=== PATIENT | female | born 1995 | race American Indian/Alaskan Native ===

== ENCOUNTER 2016-10-02 16:10 | Inpatient (IN) | payer MEDICAID ==
[2016-10-02] MEDS ORDERED: ePHEDrine SULFATE IV PRN ×2 (16:19→18:55)
[2016-10-02] MEDS ORDERED: XYLOCAINE 2% INFILTRATI ONE (16:19)
[2016-10-02] MEDS ORDERED: BRETHINE IVP PRN (16:19)
[2016-10-02] MEDS ORDERED: SUBLIMAZE IV PRN (16:19)
[2016-10-02] MEDS ORDERED: MINERAL OIL PO PRN (16:19)
[2016-10-02] MEDS ORDERED: BRETHINE SUB-Q PRN (16:19)
--- NOTE | 2016-10-02 16:27 | History and Physical Report ---
History of Present Illness Date of examination: 10/02/16 Date of admission: 10/02/16 16:10 Chief complaint: Contractions on and off since Wednesday, also C/O leaking fluid, nitrazine negative in office History of present illness: 21 YO now 37 weeks with limited care at [facility]. Upon exam today she was 5-6cm/80/-1. FHR was 160-170 in the office. She reports that she has had fever. Past History Past Medical History: no pertinent history Past Surgical History: no surgical history [employer] History: abnormal PAP smear Family/Genetic History: none Social history: no significant social history - Obstetrical History Expected Date of Delivery: 10/23/16 Actual Gestation: 37 Week(s) 0 Day(s) : 3 Para: 2 Hx # Term Pregnancies: 2 Number of Pregnancies: 0 Spontaneous Abortions: 0 Induced : 0 Number of Living Children: 2 Medications and Allergies Allergies Allergy/AdvReac Type Severity Reaction Status Date / Time No Known Allergies Allergy Unverified 10/02/16 17:20 Active Meds: Active Medications Ephedrine Sulfate (Ephedrine Sulfate) 10 mg IV Q2M PRN PRN Reason: Hypotension Stop: 10/02/16 16:24 Fentanyl (Sublimaze) 100 mcg IV Q2H PRN PRN Reason: Labor Pain Lactated Ringer's (Lactated Ringers) 1,000 mls @ 125 mls/hr IV DIRECT IDRIS Oxytocin/Sodium Chloride (Pitocin/Ns 20 Unit/1000ml Drip) 20 units in 1,000 mls @ 125 mls/hr IV DIRECT IDRIS Oxytocin/Sodium Chloride (Pitocin/Ns 30 Unit/500ml) 30 units in 500 mls @ 4 mls /hr IV TITR IDRIS PRN Reason: Protocol Lidocaine (Xylocaine 2%) 20 ml INFILTRATI ONCE ONE Stop: 10/02/16 16:20 Mineral Oil (Mineral Oil) 30 ml PO QHS PRN PRN Reason: Constipation Terbutaline Sulfate (Brethine) 0.25 mg SUB-Q ONCE PRN PRN Reason: Hyperstimulation/Hypertonicity Stop: 10/02/16 16:20 Terbutaline Sulfate (Brethine) 0.25 mg IVP ONCE PRN PRN Reason: Hyperstimulation/Hypertonicity Stop: 10/02/16 16:20 Review of Systems All systems: negative - Physical Exam Breasts: Positive: deferred Cardiovascular: Regular rate Lungs: Positive: Clear to auscultation Abdomen: Positive: soft Genitourinary (Female): Positive: normal external genitalia Vagina: Positive: normal moisture Uterus: Positive: enlarged Adnexa: both: normal Deep Tendon Reflex Grade: Normal +2 - Obstetrical FHR: category 2 Uterine Contraction Monitor Mode: External Cervical Dilatation: 5.5 Cervical Effacement Percentage: 80 station: -1 Uterine Contraction Pattern: Regular Uterine Contraction Intensity: Moderate Results Result Diagrams: 10/02/16 17:05 All other labs normal. Assessment and Plan A: Active labor @37 weeks Febrile P; Admit for augmentation of labor Ampicillin started Tylenol 1 gm po
[2016-10-02] MEDS ORDERED: PITOCin/NS 20 UNIT/1000ML DRIP 20 UNITS/1,000 ML BAG IV SCH (17:00)
[2016-10-02 17:31] LABS: Hematocrit 35.8 % (30.3-42.9); Hemoglobin 11.8 gm/dl (10.1-14.3); Mean Corpuscular HGB Conc 33 % (30-34); Mean Corpuscular Hemoglobin 28 pg (28-32); Mean Corpuscular Volume 85 fl (79-97); Platelet Count 200 K/mm3 (140-440); Red Blood Count 4.19 M/mm3 (3.65-5.03); White Blood Count 8.6 K/mm3 (4.5-11.0)
[2016-10-02] MEDS: LACTATED RINGERS 1,000 ML IV SCH ×2 (17:37→19:16)
[2016-10-02] MEDS ORDERED: ZOFRAN IV ONE (17:38)
[2016-10-02] MEDS ORDERED: TYLENOL PO ONE (17:38)
[2016-10-02] MEDS ORDERED: POLYCILLIN/NS 2 GM/100 ML 2 GM/100 ML BAG IV ONE (17:39)
[2016-10-02] MEDS: PITOCin/NS 30 UNIT/500ML 30 UNITS/500 ML BAG IV SCH ×2 (18:10→19:00)
[2016-10-02] MEDS ORDERED: fentaNYL-BUPIV 2 MCG/ML-0.125% 200 MCG/100 ML BAG EPIDURAL ONE (18:23)
[2016-10-02] MEDS ORDERED: NARCAN 2 MG/2 ML IV PRN (18:55)
--- NOTE | 2016-10-02 18:58 | Event Note ---
Date: 10/02/16 O: Epidural in, arom clear fluid, no odor. VE 780/-1. FHR still 170-180's. Pit increased to 8mu A: Augmentation of labor at 37 weeks tachycardia P: Expect
[2016-10-02] MEDS ORDERED: fentaNYL-BUPIV 2 MCG/ML-0.125% 200 MCG/100 ML BAG EPIDURAL SCH (19:00)
[2016-10-02] MEDS ORDERED: LANSINOH TP PRN (20:33)
[2016-10-02] MEDS ORDERED: BENADRYL PO PRN (20:33)
[2016-10-02] MEDS ORDERED: PHENERGAN PO PRN (20:33)
[2016-10-02] MEDS ORDERED: MILK OF MAGNESIA PO PRN (20:33)
[2016-10-02] MEDS ORDERED: NORCO 5/325 PO PRN (20:33)
[2016-10-02] MEDS ORDERED: TUCKS PAD TP PRN (20:33)
[2016-10-02] MEDS ORDERED: TYLENOL PO PRN (20:33)
[2016-10-02] MEDS ORDERED: DERMOPLAST TP PRN (20:33)
--- NOTE | 2016-10-02 20:41 | Procedure Note ---
OB Delivery Note - Delivery Date of Delivery: 10/02/16 Surgeon: BIJU ZARATE Estimated blood loss: 100cc - Vaginal Delivery presentation: vertex Delivery position: OA Intrapartum events: febrile- temp >100.3, extend. tachycardia Delivery augmentation: rupture of membranes, pitocin Delivery monitor: external FHT, external uterine Route of delivery: Delivery placenta: spontaneous Delivery cord: nuchal cord, 3 umbilical vessels Episiotomy: none Delivery laceration: none Anesthesia: epidural Delivery comments: of a viable female 5 # 14 oz at 2012 on 10/02/16 over intact perineum. Nuchal cord x one reduced. Placenta delivered 3 VCI. FF @ U. Mother and baby doing well. EBL 100cc - A at 1 minute: 8 at 5 minutes: 9 Gender: Female (5#-14 oz)
[2016-10-02] MEDS ORDERED: SODIUM CHLORIDE FLUSH SYRINGE 10 ML IV NR (21:00)
[2016-10-02] MEDS ORDERED: POLYCILLIN/NS 1 GM/50 ML 1 GM/50 ML BAG IV SCH (21:40)
[2016-10-02] MEDS: MOTRIN PO SCH (23:41)
[2016-10-03] MEDS: MOTRIN PO SCH ×3 (05:32→17:55)
[2016-10-03 10:06] LABS: Hematocrit 32.8 % (30.3-42.9); Hemoglobin 10.9 gm/dl (10.1-14.3)
--- NOTE | 2016-10-03 11:20 | Progress Note ---
Assessment and Plan A: PP Day #1 Infected nipple/around ring P: Follow routine orders Bacitracin Zinc Oint to bedside for nipple D/C home in the AM RTO in 6 Weeks Subjective - Subjective Date of service: 10/03/16 Patient reports: appetite normal, voiding normally, pain well controlled, flatus , ambulating normally : in NICU, bottle feeding Objective - Vital Signs Latest vital signs: Vital Signs Temp Pulse Pulse Pulse Resp BP BP 10/03/16 08:40 97.5 F L 71 18 116/69 10/03/16 05:00 97.8 F 70 20 127/67 10/03/16 01:28 98.7 F 82 20 132/60 10/02/16 22:00 98.7 F 84 18 138/73 10/02/16 21:30 98.8 F 18 10/02/16 21:29 107 H 118/60 10/02/16 21:14 111 H 124/70 10/02/16 20:59 88 128/72 10/02/16 20:44 91 H 130/71 10/02/16 20:29 105 H 129/65 10/02/16 20:22 97 H 129/64 10/02/16 20:00 108 H 10/02/16 19:55 85 10/02/16 19:50 86 10/02/16 19:45 94 H 10/02/16 19:40 94 H 10/02/16 19:35 98 H 10/02/16 19:30 103 H 10/02/16 19:25 92 H 10/02/16 19:20 92 H 10/02/16 19:18 100.2 F H 10/02/16 19:15 89 10/02/16 19:10 94 H 10/02/16 19:05 107 H 10/02/16 19:00 92 H 10/02/16 18:55 93 H 10/02/16 18:50 94 H 10/02/16 18:45 94 H 127/74 10/02/16 18:40 101 H 10/02/16 18:35 114 H 10/02/16 18:30 108 H 10/02/16 18:25 106 H 10/02/16 18:20 122 H 10/02/16 17:51 109 H 10/02/16 17:46 100 H 05/19/17 17:41 98 H 0517 17:36 97 H 0517 17:34 100.4 F H 107 H 20 133/84 0517 17:31 105 H 133/84 0517 17:26 112 H 17 17:21 103 H 10/02/16 17:16 97 H 10/02/16 17:11 99 H 10/02/16 17:06 101 H 10/02/16 17:01 99 H 10/02/16 16:56 104 H Pulse Ox 10/03/16 08:40 05 05:00 10/03/16 01:28 10/02/16 22:00 10/02/16 21:30 10/02/16 21:29 10/02/16 21:14 10/02/16 20:59 10/02/16 20:44 05 20:29 17 20:22 05 20:00 100 17 19:55 99 0517 19:50 99 051917 19:45 99 051917 19:40 99 051917 19:35 98 051917 19:30 97 051917 19:25 99 051917 19:20 100 051917 19:18 0517 19:15 100 051917 19:10 99 051917 19:05 99 051917 19:00 98 051917 18:55 99 051917 18:50 99 051917 18:45 98 051917 18:40 97 051917 18:35 99 051917 18:30 100 0519/17 18:25 98 0519/17 18:20 98 051917 17:51 100 051917 17:46 100 051917 17:41 100 051917 17:36 99 051917 17:34 100 051917 17:31 100 051917 17:26 98 051917 17:21 98 051917 17:16 99 051917 17:11 97 05/19/17 17:06 100 10/02/16 17:01 100 10/02/16 16:56 98 Intake and Output 10/02/16 10/03/16 10/03/16 22:59 06:59 14:59 Intake Total 2272 480 Output Total 750 600 Balance 1522 -120 Intake: IV 1000 Lactated Ringers 1,000 ml 1000 @ 125 mls/hr IV DIRECT IDRIS Rx#:[id number] Intake, Free Water 480 Other 1272 Output: Urine 750 600 Indwelling Catheter 750 Void 600 Other: Intake, Other Source Saline Solution Total, Intake Amount 1272 Total, Output Amount 300 600 # Voids Void 1 Weight 64.864 kg Estimated Blood Loss 100 - Exam Breasts: Present: nipple abnormal (reddness and inflammation around left nipple ring) Cardiovascular: Present: Regular rate Lungs: Present: Clear to auscultation Abdomen: Present: normal appearance, soft, normal bowel sounds Uterus: Present: normal, firm, fundal height below umbilicus Extremities: Present: normal
--- NOTE | 2016-10-03 11:22 | Discharge Summary ---
Providers - Providers Date of Admission: 10/02/16 16:10 Date of discharge: 10/04/16 Attending physician: REMA PAULINO MD Primary care physician: REMA PAULINO MD Hospitalization Reason for admission: active labor Delivery: Episiotomy: none Laceration: 2nd degree Other procedures: none complications: none Discharge diagnosis: IUP at term delivered baby: female Condition at discharge: Good Disposition: DISCHARGED TO HOME OR SELFCARE Plan - Provider Discharge Summary Activity: routine, no sex for 6 weeks, no heavy lifting 4 weeks, no strenuous exercise Diet: routine Instructions: routine Additional instructions: [] Smoking cessation referral if applicable(refer to patient education folder for contact #) [] Refer to [facility] Booklet Call your doctor immediately for: * Fever > 100.5 * Heavy vaginal bleeding ( >1 pad per hour) * Severe persistent headache * Shortness of breath * Reddened, hot, painful area to leg or breast * Drainage or odor from incision. * Keep incision clean and dry at all times and follow doctor's instructions regarding bathing/showering - Follow up plan Follow up: BIJU ZARATE CNM [Advanced Practice Nurse] - 6 Weeks
--- NOTE | 2016-10-03 11:44 | Progress Note ---
Assessment and Plan A: PP Day #1 Stable P: Follow Routine Orders D/C Home today per patient request Depo Roll Reclaimer prior to discharge RTO in 6 Weeks Subjective - Subjective Date of service: 10/03/16 Patient reports: appetite normal, voiding normally, pain well controlled, flatus , ambulating normally : doing well, bottle feeding Objective - Vital Signs Latest vital signs: Vital Signs Temp Pulse Pulse Pulse Resp BP BP 10/03/16 08:40 97.5 F L 71 18 116/69 10/03/16 05:00 97.8 F 70 20 127/67 10/03/16 01:28 98.7 F 82 20 132/60 10/02/16 22:00 98.7 F 84 18 138/73 10/02/16 21:30 98.8 F 18 10/02/16 21:29 107 H 118/60 10/02/16 21:14 111 H 124/70 10/02/16 20:59 88 128/72 10/02/16 20:44 91 H 130/71 10/02/16 20:29 105 H 129/65 10/02/16 20:22 97 H 129/64 10/02/16 20:00 108 H 10/02/16 19:55 85 10/02/16 19:50 86 10/02/16 19:45 94 H 10/02/16 19:40 94 H 10/02/16 19:35 98 H 10/02/16 19:30 103 H 10/02/16 19:25 92 H 10/02/16 19:20 92 H 10/02/16 19:18 100.2 F H 10/02/16 19:15 89 10/02/16 19:10 94 H 10/02/16 19:05 107 H 10/02/16 19:00 92 H 10/02/16 18:55 93 H 10/02/16 18:50 94 H 10/02/16 18:45 94 H 127/74 10/02/16 18:40 101 H 10/02/16 18:35 114 H 10/02/16 18:30 108 H 10/02/16 18:25 106 H 10/02/16 18:20 122 H 10/02/16 17:51 109 H 10/02/16 17:46 100 H 10/02/16 17:41 98 H 10/02/16 17:36 97 H 10/02/16 17:34 100.4 F H 107 H 20 133/84 10/02/16 17:31 105 H 133/84 10/02/16 17:26 112 H 10/02/16 17:21 103 H 10/02/16 17:16 97 H 10/02/16 17:11 99 H 10/02/16 17:06 101 H 10/02/16 17:01 99 H 10/02/16 16:56 104 H Pulse Ox 10/03/16 08:40 10/03/16 05:00 10/03/16 01:28 10/02/16 22:00 10/02/16 21:30 10/02/16 21:29 10/02/16 21:14 10/02/16 20:59 10/02/16 20:44 10/02/16 20:29 10/02/16 20:22 10/02/16 20:00 100 10/02/16 19:55 99 17 19:50 99 17 19:45 99 0517 19:40 99 17 19:35 98 17 19:30 97 17 19:25 99 0517 19:20 100 0517 19:18 05 19:15 100 0517 19:10 99 17 19:05 99 17 19:00 98 17 18:55 99 17 18:50 99 17 18:45 98 051917 18:40 97 051917 18:35 99 051917 18:30 100 051917 18:25 98 051917 18:20 98 051917 17:51 100 051917 17:46 100 051917 17:41 100 051917 17:36 99 051917 17:34 100 051917 17:31 100 051917 17:26 98 051917 17:21 98 17 17:16 99 0517 17:11 97 17 17:06 100 10/02/16 17:01 100 10/02/16 16:56 98 Intake and Output 10/02/16 10/03/16 10/03/16 22:59 06:59 14:59 Intake Total 2272 480 Output Total 750 600 Balance 1522 -120 Intake: IV 1000 Lactated Ringers 1,000 ml 1000 @ 125 mls/hr IV DIRECT IDRIS Rx#:[id number] Intake, Free Water 480 Other 1272 Output: Urine 750 600 Indwelling Catheter 750 Void 600 Other: Intake, Other Source Saline Solution Total, Intake Amount 1272 Total, Output Amount 300 600 # Voids Void 1 Weight 64.864 kg Estimated Blood Loss 100 - Exam Breasts: Present: normal Cardiovascular: Present: Regular rate Lungs: Present: Clear to auscultation, Normal air movement Abdomen: Present: normal appearance, soft, normal bowel sounds Uterus: Present: normal, firm, fundal height below umbilicus Extremities: Present: normal
[2016-10-03] MEDS ORDERED: DEPO-PROVERA (CONTRACEPTION) IM NR (12:00)
[2016-10-03] MEDS ORDERED: ANTIBIOTIC OINT TP SCH (12:00)
[2016-10-04] MEDS: MOTRIN PO SCH ×2 (00:41→05:42)
[2016-10-04 08:54] VITALS: BP 123/66
[2016-10-04] MEDS ORDERED: DEPO-PROVERA (CONTRACEPTION) IM NR (11:00)
== END 2016-10-04 11:55 | disposition home or self-care (01) | DRG 774 ==
LOC: LD 16:10 → OB 21:43
PROVIDERS: ADMIT Obstetrics & Gynecology; ATTEND Obstetrics & Gynecology
PROC: 10E0XZZ Delivery of Products of Conception, External Approach (ICD-10-PCS; principal; 2016-10-02)
PROC: 0KQM0ZZ Repair Perineum Muscle, Open Approach (ICD-10-PCS; 2016-10-02)
PROC: 3E0S3CZ (ICD-10-PCS; 2016-10-02)
PROC: 00HU33Z Insertion of Infusion Device into Spinal Canal, Percutaneous Approach (ICD-10-PCS; 2016-10-02)
DX: O76 Abnormality in fetal heart rate and rhythm complicating labor and delivery (principal); O75.2 Pyrexia during labor, not elsewhere classified; O70.1 Second degree perineal laceration during delivery; O69.81X0 Labor and delivery complicated by cord around neck, without compression, not applicable or unspecified; Z37.0 Single live birth; Z3A.37 37 weeks gestation of pregnancy
CPT/HCPCS: 36415; 85014; 85018; 85027; 86850; 86900; 86901; J0290; J1050; J2405; J2590; J7120